=== PATIENT | female | born 1990 | race Caucasian/White ===

== ENCOUNTER 2017-11-05 18:48 | Emergency (ER) | payer BC ==
[2017-11-05 19:02] VITALS: BP 113/64
--- NOTE | 2017-11-05 20:48 | EDM.PDOC ---
ED HPI GENERAL MEDICAL PROBLEM - General Chief Complaint: Gastrointestinal Problem Stated Complaint: GI THING GOING ON Time Seen by Provider: 11/05/17 19:55 Source of Information: Reports: Patient, Family () History Limitations: Reports: No Limitations - History of Present Illness INITIAL COMMENTS - FREE TEXT/NARRATIVE: The patient states that she has had watery, non-bloody diarrhea for the past 6 days. She states that the diarrhea will even occur at night. She states that she felt dizzy this past 11/01/2017, but not since. She has not had a fever, but she has had chills. She states that she has had a lot of abdominal cramps. She has had an occasional headache. No nausea or emesis. She states that she took one tablet of Imodium on 2 separate occasions, without relief. She does not recall eating any spoiled food. No recent antibiotic. No recent travel. She states that she works at the [employer], and two other workers there have similar symptoms, however, none of the patient's household contacts are similarly ill. No prior similar symptoms. The patient's PCP is Dr. Braulio Perdomo. The patient has not contacted him about this issue. Bilateral Lower Abdomen Pain Score (Numeric/FACES): 7 - Related Data Allergies Allergy/AdvReac Type Severity Reaction Status Date / Time lactose Allergy Diarrhea Verified 11/05/17 19:05 sertraline HCl [From Zoloft] Allergy Rash Verified 11/05/17 19:05 shellfish derived Allergy Rash Verified 11/05/17 19:05 Home Meds: Home Meds Citalopram [Celexa] 40 mg PO DAILY 05/12/16 [History] Loratadine [Claritin] 10 mg PO ASDIRECTED PRN 05/12/16 [History] metFORMIN [Glucophage XR] 750 mg PO BID 05/12/16 [History] Past Medical History Genitourinary History: Reports: Renal Calculus [facility] History: Reports: Polycystic Ovaries, Other OB/BYN History: 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 Psychiatric History: Reports: Anxiety, Depression Endocrine/Metabolic History: Reports: Obesity/BMI 30+ - Past Surgical History HEENT Surgical History: Reports: Oral Surgery (Randolph teeth extraction), Other ( See Below) (Cyst on lip excised) Female Surgical History: Reports: Other (See Below) (In vitro fertilization) Social & Family History - Tobacco Use Smoking Status *Q: Never Smoker Second Hand Smoke Exposure: No - Caffeine Use Caffeine Use: Reports: Coffee - Alcohol Use Alcohol Use History: Yes Alcohol Use Frequency: Rarely - Recreational Drug Use Recreational Drug Use: No - Living Situation & Occupation Living situation: Reports: , with Spouse, with Family (1 child) Occupation: Employed ([employer]) ED ROS GENERAL - Review of Systems Review Of Systems: ROS reveals no pertinent complaints other than HPI. ED EXAM, GI/ABD - Physical Exam Exam: See Below Exam Limited By: No Limitations General Appearance: Alert, WD/WN, No Apparent Distress Eyes: Bilateral: Normal Appearance, EOMI Ears: Normal External Exam, Hearing Grossly Normal Nose: Normal Inspection, No Blood Throat/Mouth: Normal Inspection, Normal Lips, Normal Voice, No Airway Compromise Head: Atraumatic, Normocephalic Neck: Normal Inspection, Full Range of Motion Respiratory/Chest: No Respiratory Distress, Lungs Clear, Normal Breath Sounds, No Accessory Muscle Use Cardiovascular: Normal Peripheral Pulses, Regular Rate, Rhythm, No Gallop, No JVD, No Murmur, No Rub GI/Abdominal Exam: Normal Bowel Sounds, Soft, Non-Tender, No Organomegaly, No Distention, No Abnormal Bruit, No Mass, Pelvis Stable, Other (Obese) (Female) Exam: Deferred Rectal (Female) Exam: Deferred Back Exam: Normal Inspection, Full Range of Motion Extremities: Normal Inspection, Normal Range of Motion, No Pedal Edema, Normal Capillary Refill Neurological: Alert, Oriented, Normal Cognition, No Motor/Sensory Deficits Psychiatric: Normal Affect Skin Exam: Warm, Dry, Intact, Normal Color, No Rash Course - Vital Signs Last Recorded V/S: Last Vital Signs Temp 36.7 C 11/05/17 18:59 Pulse 88 11/05/17 18:59 Resp 18 11/05/17 18:59 BP 113/64 11/05/17 18:59 Pulse Ox 96 11/05/17 18:59 Orthostatic Blood Pressure [ 117/74 Standing] Orthostatic Blood Pressure [ 116/64 Supine] - Orders/Labs/Meds Orders: Active Orders 24 hr Category Date Time Status Orthostatic Vital Signs [RC] STAT Care 11/05/17 20:09 Active C DIFFICILE BY PCR W/NAP1 [MOLEC] Stat Lab 11/05/17 20:10 Ordered CULTURE STOOL + SHIGATOX [RM] Stat Lab 11/05/17 20:11 Ordered NOROVIRUS GROUP 1 & 2 RT-PCR Stat Lab 11/05/17 20:12 Ordered ROTAVIRUS DIRECT ANTIGEN STOOL [OP] Stat Lab 11/05/17 20:11 Ordered WBC, STOOL [OP] Stat Lab 11/05/17 20:11 Ordered Labs: Laboratory Tests 11/05/17 11/05/17 11/05/17 Range/Units 19:19 19:19 19:19 WBC 9.73 (3.98-10.04) K/mm3 RBC 4.65 (3.98-5.22) M/mm3 Hgb 13.8 (11.2-15.7) gm/L Hct 41.8 (34.1-44.9) % MCV 89.9 (79.4-94.8) fl MCH 29.7 (25.6-32.2) pg MCHC 33.0 (32.2-35.5) g/dl RDW Std Deviation 43.0 (36.4-46.3) fL Plt Count 381 H (182-369) K/mm3 MPV 9.7 (9.4-12.3) fl Neutrophils % (Manual) 68 H (40-60) % Band Neutrophils % 0 (0-10) % Lymphocytes % (Manual) 30 (20-40) % Atypical Lymphs % 0 % Monocytes % (Manual) 1 L (2-10) % Eosinophils % (Manual) 0 L (0.7-5.8) % Basophils % (Manual) 1 (0.1-1.2) Platelet Estimate Adequate RBC Morph Comment Normal Sodium 139 (136-145) mEq/L Potassium 4.2 (3.5-5.1) mEq/L Chloride 103 (98-107) mEq/L Carbon Dioxide 29 (21-32) mEq/L Anion Gap 11.2 (5-15) BUN 10 (7-18) mg/dL Creatinine 0.7 (0.55-1.02) mg/dL Est Cr Clr Drug Dosing 98.98 mL/min Estimated GFR (MDRD) > 60 (>60) mL/min BUN/Creatinine Ratio 14.3 (14-18) Glucose 96 (74-106) mg/dL Calcium 9.1 (8.5-10.1) mg/dL Magnesium 1.9 (1.8-2.4) mg/dl Total Bilirubin 0.3 (0.2-1.0) mg/dL AST 19 (15-37) U/L ALT 18 (14-59) U/L Alkaline Phosphatase 76 (46-116) U/L Total Protein 7.7 (6.4-8.2) g/dl Albumin 3.9 (3.4-5.0) g/dl Globulin 3.8 gm/dL Albumin/Globulin Ratio 1.0 (1-2) - Re-Assessments/Exams Free Text/Narrative Re-Assessment/Exam: 11/05/17 20:20 The patient is not orthostatic. 11/05/17 21:48 The patient has not been able to provide a stool sample. I will discharge her home with a stool collection container, and outpatient orders for C. difficile, stool WBC, stool culture, rotavirus, and Norvasc, with results to go to Dr. Perdomo. The patient's blood work is entirely normal. No electrolyte abnormalities whatsoever. Departure - Departure Time of Disposition: 21:49 Disposition: Home, Self-Care 01 Condition: Good Clinical Impression: Diarrhea - Discharge Information Instructions: Diarrhea, Adult Referrals: Braulio Purcell MD [Primary Care Provider] - Forms: ED Department Discharge Additional Instructions: You were seen in the emergency room for watery diarrhea for the past 6 days. Workup in the ER included blood work and positional blood pressure checks. Unfortunately, you were not able to provide a stool sample. Your blood work returned entirely normal. No electrolyte abnormalities. Your blood pressure maintained itself between lying and standing, meaning that you are not dehydrated. You have been discharged home with a stool collection container. If you are able to provide a stool sample, bring it to the ER. Continue to remain adequately hydrated. You may take [id number] Imodium (loperamide) 2 (4 mg) tablets initially, then 1 tablet (2 mg) after each loose bowel movement, to a maximum of 8 tablets (16 mg) within a 24-hour period. Follow-up with Dr. Perdomo within 3 days of submitting your stool sample. If any other problems, please do not hesitate to return to the ER. - My Orders Last 24 Hours: My Active Orders 11/05/17 20:09 Orthostatic Vital Signs [RC] STAT 11/05/17 20:10 C DIFFICILE BY PCR W/NAP1 [MOLEC] Stat 11/05/17 20:11 CULTURE STOOL + SHIGATOX [RM] Stat ROTAVIRUS DIRECT ANTIGEN STOOL [OP] Stat WBC, STOOL [OP] Stat 11/05/17 20:12 NOROVIRUS GROUP 1 & 2 RT-PCR Stat - Assessment/Plan Last 24 Hours: My Active Orders 11/05/17 20:09 Orthostatic Vital Signs [RC] STAT 11/05/17 20:10 C DIFFICILE BY PCR W/NAP1 [MOLEC] Stat 11/05/17 20:11 CULTURE STOOL + SHIGATOX [RM] Stat ROTAVIRUS DIRECT ANTIGEN STOOL [OP] Stat WBC, STOOL [OP] Stat 11/05/17 20:12 NOROVIRUS GROUP 1 & 2 RT-PCR Stat
== END 2017-11-05 22:06 | disposition home or self-care (01) ==
LOC: JD.ED 18:48
DX: R19.7 Diarrhea, unspecified (principal); F41.9 Anxiety disorder, unspecified; F32.9 Major depressive disorder, single episode, unspecified; Z91.011 Allergy to milk products; Z88.8 Allergy status to other drugs, medicaments and biological substances; Z91.013 Allergy to seafood; Z79.84 Long term (current) use of oral hypoglycemic drugs; Z79.899 Other long term (current) drug therapy
CPT/HCPCS: 36415; 80053; 83735; 85025; 99282; 99284

== ENCOUNTER 2021-12-27 07:29 | Emergency (ER) | payer BC ==
[2021-12-27 12:19] VITALS: BP 124/59; PULSE 93
== END 2021-12-27 12:49 | disposition home or self-care (01) ==
LOC: JD.ED 08:10
DX: O20.9 Hemorrhage in early pregnancy, unspecified (principal); Z3A.01 Less than 8 weeks gestation of pregnancy; Z91.011 Allergy to milk products; Z91.013 Allergy to seafood; Z88.8 Allergy status to other drugs, medicaments and biological substances; Z86.16 Personal history of COVID-19
CPT/HCPCS: 36415; 76817; 76817-26; 80053; 81001; 84702; 85025; 85610; 85730; 86850; 86900; 86901; 99283; 99284-25; J2790

== ENCOUNTER 2023-08-05 11:14 | Emergency (ER) | payer BC ==
[2023-08-05 12:44] LABS: APPEARANCE,URINE CLOUDY (Clear); BILIRUBIN,URINE NEGATIVE (Negative); COLOR,URINE YELLOW (Yellow); GLUCOSE,URINE NEGATIVE (Negative); KETONES,URINE NEGATIVE (Negative); LEUKOCYTE ESTERASE,URINE NEGATIVE (Negative); NITRITE,URINE NEGATIVE (Negative); OCCULT BLOOD,URINE 3+ (Negative); PROTEIN,URINE 1+ (Negative); UROBILINOGEN,URINE 0.2 (0.2-1.0)
[2023-08-05 12:48] LABS: BASOPHILS ABSOLUTE AUTO 0.1 K/mm3 (0.0-0.2); BASOPHILS PERCENT AUTO 0.4 % (0.0-1.0); EOSINOPHILS ABSOLUTE AUTO 0.1 K/mm3 (0.0-0.4); EOSINOPHILS PERCENT AUTO 0.5 % (0.0-6.0); HEMATOCRIT 42.8 % (37.0-47.0); IMMATURE GRAN ABSOLUTE AUTO 0.06 K/mm3 (0.00-0.05); IMMATURE GRAN PERCENT AUTO 0.4 % (0.0-0.4); LYMPHOCYTES ABSOLUTE AUTO 1.5 K/mm3 (1.0-4.8); LYMPHOCYTES PERCENT AUTO 10.2 % (24.0-44.0); MEAN CORPUSCULAR HGB CONC 32.7 g/dl (32.0-36.0); MEAN CORPUSCULAR VOLUME 91.8 fl (83.0-99.0); MONOCYTES ABSOLUTE AUTO 0.5 K/mm3 (0.0-0.8); NEUTROPHILS ABSOLUTE AUTO 12.8 K/mm3 (1.8-7.7); NEUTROPHILS PERCENT AUTO 85.5 % (41.0-71.0); PLATELET COUNT,PLT 357 K/mm3 (150-400); RED BLOOD CELL COUNT 4.66 M/mm3 (4.10-5.30); WHITE BLOOD CELL COUNT,WBC 14.96 K/mm3 (3.9-11.3)
[2023-08-05 13:00] LABS: BACTERIA,URINE MODERATE /hpf (FEW); MUCUS,URINE FEW /hpf (FEW); RBC,URINE >100 /hpf (0-5)
[2023-08-05 13:19] LABS: A/G RATIO 0.9 (1-2); ALANINE AMINOTRANSFERASE,ALT 20 U/L (14-59); ALBUMIN 3.5 g/dl (3.4-5.0); ALKALINE PHOSPHATASE 85 U/L (46-116); ANION GAP 12.4 (5-15); ASPARTATE AMNIOTRANSFERASE,AST 14 U/L (15-37); BILIRUBIN TOTAL 0.2 mg/dL (0.2-1.0); BLOOD UREA NITROGEN,BUN 14 mg/dL (7-18); BUN/CREATININE RATIO 17.5 (14-18); CALCIUM 9.1 mg/dL (8.5-10.1); CARBON DIOXIDE,CO2 27 mEq/L (21-32); CHLORIDE,CL 104 mEq/L (98-107); CREATININE 0.8 mg/dL (0.55-1.02); EST CRCL DRUG DOSING (CG) 85.56 mL/min; ESTIMATED GFR 99 mL/min (>60); GLUCOSE RANDOM 136 mg/dL (70-99); POTASSIUM,K 4.4 mEq/L (3.5-5.1); PROTEIN TOTAL,TP 7.5 g/dl (6.4-8.2); SODIUM,NA 139 mEq/L (136-145)
[2023-08-05] MEDS ORDERED: Ketorolac 60 MG/2 ML SDV IM ONE (13:23)
[2023-08-05 13:24] LABS: HCG QUANTITATIVE < 1.0 mIU/mL
[2023-08-05 19:41] VITALS: BP 145/77; PULSE 83
== END 2023-08-05 15:23 | disposition home or self-care (01) ==
LOC: JD.ED 11:14
DX: N13.30 Unspecified hydronephrosis (principal); N20.0 Calculus of kidney; J45.909 Unspecified asthma, uncomplicated; E66.9 Obesity, unspecified; Z68.41 Body mass index [BMI] 40.0-44.9, adult; Z86.16 Personal history of COVID-19; Z79.82 Long term (current) use of aspirin; Z79.899 Other long term (current) drug therapy; Z91.018 Allergy to other foods; Z88.8 Allergy status to other drugs, medicaments and biological substances
CPT/HCPCS: 36415; 74176; 80053; 81001; 84702; 85025; 96372; 99284; J1885